=== PATIENT | male | born 1940 | race Caucasian/White ===

== ENCOUNTER 2017-10-01 07:10 | Day surgery (SDC) | payer OTHER ==
[2017-10-01] MEDS ORDERED: LIDOCAINE HCL 2% (20ML MULTI-DOSE VIAL) NR ONE (07:49)
[2017-10-01] MEDS ORDERED: PROPOFOL 20 ML ONE ×3 (07:49)
[2017-10-01 07:55] VITALS: BMI 23.2
[2017-10-01 08:49] VITALS: TEMP 97.8
[2017-10-01 10:04] VITALS: BP 125/60; PULSE 61
--- NOTE | 2017-10-03 15:54 | PATH ---
Surgical Pathology Report Patient Name: HORTENSIA PIERRE [facility] Rec. #: [id number] /Age/Gender: 1940 (Age: 77) / M Account: [id number] Location: U-ENDOSCOPY Taken: 10/01/2017 Received: 10/01/2017 Reported: 10/03/2017 Physicians: Maxi Soto M.D. Specimen(s) Received A: BX 2ND PORTION OF DUODENUM AND BULB B: BX OF FUNDUS POLYPS C: BX ANTRUM D: BX DISTAL TRANSVERSE COLON E: RIGHT COLON POLYP Clinical History GERD, gastric fundus polyp, radiation proctitis, colon polyps Final Diagnosis A. DUODENUM, SECOND PORTION AND DUODENAL BULB, BIOPSY: DUODENAL MUCOSA WITHOUT SIGNIFICANT PATHOLOGIC FINDINGS. B. FUNDUS, POLYP, BIOPSY: POLYPOID GASTRIC MUCOSA WITH MILD CHRONIC GASTRITIS. IMMUNOHISTOCHEMICAL STAIN FOR H. PYLORI IS NEGATIVE. C. STOMACH, ANTRUM, BIOPSY: GASTRIC ANTRAL MUCOSA WITH MILD CHRONIC GASTRITIS. IMMUNOHISTOCHEMICAL STAIN FOR H. PYLORI IS NEGATIVE. D. DISTAL TRANSVERSE COLON, POLYP, BIOPSY: POLYPOID COLONIC MUCOSA WITH FOCAL HYPERPLASTIC FEATURES. E. COLON, RIGHT, POLYP, BIOPSY: POLYPOID COLONIC MUCOSA WITHOUT SIGNIFICANT PATHOLOGIC FINDINGS. Electronically Signed Zahra Stanley M.D. Gross Description A. Received in formalin, labeled "biopsy second portion of duodenum and duodenal bulb" are 4 galarza, irregular portions of soft tissue ranging from 0.2-0.5 cm. in greatest dimension. The specimens are submitted in toto in one cassette. B. Received in formalin, labeled "biopsy fundus polyp" are 3 galarza, irregular portions of soft tissue ranging from 0.3-0.7 cm. in greatest dimension. The specimens are submitted in toto in one cassette. C. Received in formalin, labeled "biopsy antrum" are 4 galarza, irregular portions of soft tissue ranging from 0.3-0.8 cm. in greatest dimension. The specimens are submitted in toto in one cassette. D. Received in formalin, labeled "biopsy distal transverse colon polyp" is a galarza, irregular portion of soft tissue measuring 0.2 cm. in greatest dimension. The specimen is submitted in toto in one cassette. E. Received in formalin, labeled "biopsy right colon polyp" are 4 galarza, irregular portions of soft tissue ranging from 0.2-0.4 cm. in greatest dimension. The specimens are submitted in toto in one cassette. 10/01/201710/01/2017
== END 2017-10-01 09:50 | disposition home or self-care (01) ==
LOC: JASU-ENDO 07:10
PROVIDERS: ATTEND Internal Medicine Gastroenterology
PROC: 0DBK8ZX Excision of Ascending Colon, Via Natural or Artificial Opening Endoscopic, Diagnostic (ICD-10-PCS; 2017-10-01)
PROC: 0DB98ZX Excision of Duodenum, Via Natural or Artificial Opening Endoscopic, Diagnostic (ICD-10-PCS; 2017-10-01)
PROC: 0DB68ZX Excision of Stomach, Via Natural or Artificial Opening Endoscopic, Diagnostic (ICD-10-PCS; 2017-10-01)
PROC: 0DBL8ZX Excision of Transverse Colon, Via Natural or Artificial Opening Endoscopic, Diagnostic (ICD-10-PCS; principal; 2017-10-01 08:00)
DX: D64.9 Anemia, unspecified (principal); K92.1 Melena; D12.2 Benign neoplasm of ascending colon; D12.3 Benign neoplasm of transverse colon; K57.30 Diverticulosis of large intestine without perforation or abscess without bleeding; K55.20 Angiodysplasia of colon without hemorrhage; K62.7 Radiation proctitis; K31.7 Polyp of stomach and duodenum; K44.9 Diaphragmatic hernia without obstruction or gangrene; K21.0 Gastro-esophageal reflux disease with esophagitis
CPT/HCPCS: 88305-TC; 88342-TC